=== PATIENT | male | born 1995 | race Caucasian/White ===

== ENCOUNTER 2019-03-15 20:09 | Emergency (ER) | payer OTHER ==
[2019-03-15] MEDS ORDERED: ACETAMINOPHEN TAB 500 MG TAB PO STA (21:47)
[2019-03-15] MEDS: SODIUM CHLORIDE 0.9% 500 ML 500 ML IV SCH ×3 (22:11→23:28)
[2019-03-15 22:34] LABS: Basophils # (A) 0.1 k/uL (0-0.2); Basophils % (A) 1 %; Eosinophils # (A) 0.1 k/uL (0-0.7); Eosinophils % (A) 1 %; HCT 42.7 % (39.0-53.0); HGB 15.1 gm/dL (13.0-17.5); Lymphocytes # (A) 2.2 k/uL (1.0-4.8); Lymphocytes % (A) 21 %; MCH 30.7 pg (25.0-35.0); MCHC 35.4 g/dL (31.0-37.0); MCV 86.6 fL (80.0-100.0); Mean Platelet Volume 8.5; Monocytes # (A) 0.6 k/uL (0-1.0); Monocytes % (A) 6 %; Neutrophils # (A) 7.1 k/uL (1.3-7.7); Neutrophils % (A) 69 %; Platelet Count 258 k/uL (150-450); RBC 4.92 m/uL (4.30-5.90); RDW 13.9 % (11.5-15.5); WBC 10.2 k/uL (3.8-10.6)
[2019-03-15 22:42] LABS: ALT 49 U/L (21-72); AST 39 U/L (17-59); African American GFR (CKD) >90 (>60 ml/min/1.73 sqM); Albumin 4.6 g/dL (3.5-5.0); Alkaline Phosphatase 67 U/L (38-126); Anion Gap 9 mmol/L; Blood Urea Nitrogen 19 mg/dL (9-20); Calcium 9.7 mg/dL (8.4-10.2); Carbon Dioxide 27 mmol/L (22-30); Chloride 107 mmol/L (98-107); Glucose 88 mg/dL (74-99); Sodium 143 mmol/L (137-145); Total Bilirubin 0.8 mg/dL (0.2-1.3); Total Protein 7.7 g/dL (6.3-8.2)
[2019-03-15 23:10] LABS: Appearance,Urine Clear (Clear); Bilirubin,Urine Negative (Negative); Blood,Urine Negative (Negative); Color,Urine Yellow; Glucose,Urine (UA) Negative (Negative); Hyaline Casts,Urine 3 /lpf (0-2); Ketones,Urine 1+ (Negative); Leukocyte Esterase,Urine Negative (Negative); Mucus,Urine Moderate /hpf; Nitrite,Urine Negative (Negative); PH, Urine 5.5 (5.0-8.0); Protein,Urine 1+ (Negative); RBC,Urine 2 /hpf (0-5); Specific Gravity,Urine 1.033 (1.001-1.035); Squamous Epithelial Cell,Urine 1 /hpf (0-4); WBC,Urine 3 /hpf (0-5)
[2019-03-15] MEDS ORDERED: SULFAMETH-TMP DS STARTER PACK 2 TAB BTL PO STA (23:14)
[2019-03-15] MEDS ORDERED: CEPHALEXIN 500MG STARTER PACK 4 CAP BTL PO STA (23:14)
--- NOTE | 2019-03-15 23:17 | XR ---
INDICATION: Fever COMPARISON: None FINDINGS: Frontal and lateral views of the chest are obtained. The lungs are clear. There is no effusion or pneumothorax. Cardiomediastinal select and pulmonary vascularity are normal. Regional skeleton appears intact. IMPRESSION: No acute cardiopulmonary disease.
--- NOTE | 2019-03-15 23:17 | ED ---
Skin/Abscess/FB HPI - General Chief complaint: Skin/Abscess/Foreign Body Stated complaint: Fever Time Seen by Provider: 03/15/19 21:11 Source: patient, family Mode of arrival: ambulatory Limitations: no limitations - History of Present Illness Initial comments: 23-year-old male patient presents to the emergency department today for evaluation of infection to the right side of his face. Patient states for the last 2 days he has been feeling unwell. States that he has had sweats, chills, and is felt feverish. Patient states he has been feeling very fatigued. States that he had a pimple to the right cheek which he popped and drained. He states today he developed redness surrounding the area. Patient denies any dental pain. Patient does report remote history of IV drug abuse. States he currently only uses marijuana. Patient states there is a possibility of HIV would like to be tested. Denies any nausea, vomiting, abdominal pain. Denies any cough, congestion, or sore throat. Denies any other areas of infection. Patient denies any recent rash, shortness breath, chest pain, diarrhea, constipation, back pain, numbness, tingling, dizziness, weakness, hematuria, dysuria, urinary urgency, urinary frequency, headache, visual changes, or any other complaints. - Related Data Previous Rx's Medication Instructions Recorded Cephalexin [Keflex] 500 mg PO Q6HR #40 cap 03/15/19 Sulfamethoxazole/Trimethoprim 1 each PO BID #20 tablet 03/15/19 [Bactrim DS 800-160 mg] Allergies Allergy/AdvReac Type Severity Reaction Status Date / Time No Known Allergies Allergy Verified 03/15/19 21:52 Review of Systems ROS Statement: Those systems with pertinent positive or pertinent negative responses have been documented in the HPI. ROS Other: All systems not noted in ROS Statement are negative. Past Medical History Past Medical History: No Reported History History of Any Multi-Drug Resistant Organisms: None Reported Past Surgical History: No Surgical Hx Reported Past Psychological History: No Psychological Hx Reported Smoking Status: Never smoker Past Alcohol Use History: Occasional Past Drug Use History: Marijuana General Exam Limitations: no limitations General appearance: alert, in no apparent distress, other (Is a well-developed, well-nourished adult male patient in no acute distress. Vital signs upon presentation are temperature 100.7F oral, pulse 101, respirations 20, blood pressure 142/89, pulse ox 98% on room air.) Eye exam: Present: normal appearance, PERRL, EOMI. Absent: scleral icterus, conjunctival injection, periorbital swelling ENT exam: Present: normal exam, normal oropharynx, mucous membranes moist Respiratory exam: Present: normal lung sounds bilaterally. Absent: respiratory distress, wheezes, rales, rhonchi, stridor Cardiovascular Exam: Present: regular rate, normal rhythm, normal heart sounds. Absent: systolic murmur, diastolic murmur, rubs, gallop, clicks Course Vital Signs 03/15/19 03/15/19 03/15/19 20:27 20:42 21:30 Temperature 98.2 F 99.0 F 100.7 F H Pulse Rate 101 H Respiratory 20 Rate Blood Pressure 142/89 O2 Sat by Pulse 98 Oximetry 03/15/19 23:35 Temperature 98.9 F Pulse Rate 96 Respiratory 18 Rate Blood Pressure 131/87 O2 Sat by Pulse 100 Oximetry Medical Decision Making - Medical Decision Making 23-year-old male patient presents to the emergency department today for evaluation of infection to the right side of his face, fever, and sweats. Physical examination reveals a wound to the right cheek with surrounding cell ulitis. No lymphadenopathy. No dental infection. Abdomen is soft and nontender. Lungs are clear to auscultation with good air movement. Labs reviewed and are unremarkable. Patient does report a possibility for HIV infection, we did send HIV testing. Patient was given IV fluids and Tylenol. U dee reevaluation does report improve symptoms. He'll be started on Keflex and Bactrim for cellulitis to the face. HIV testing is pending. He is instructed to follow[facility]up with [facility] for [facility] evaluation. Return parameters discussed in detail. He verbalizes understanding and agrees this plan. - Lab Data Result diagrams: 03/15/19 22:15 03/15/19 22:15 Lab Results 03/15/19 03/15/19 03/15/19 Range/Units 22:15 22:15 22:15 WBC 10.2 (3.8-10.6) k/uL RBC 4.92 (4.30-5.90) m/uL Hgb 15.1 (13.0-17.5) gm/dL Hct 42.7 (39.0-53.0) % MCV 86.6 (80.0-100.0) fL MCH 30.7 (25.0-35.0) pg MCHC 35.4 (31.0-37.0) g/dL RDW 13.9 (11.5-15.5) % Plt Count 258 (150-450) k/uL Neutrophils % 69 % Lymphocytes % 21 % Monocytes % 6 % Eosinophils % 1 % Basophils % 1 % Neutrophils # 7.1 (1.3-7.7) k/uL Lymphocytes # 2.2 (1.0-4.8) k/uL Monocytes # 0.6 (0-1.0) k/uL Eosinophils # 0.1 (0-0.7) k/uL Basophils # 0.1 (0-0.2) k/uL Sodium 143 (137-145) mmol/L Potassium 4.0 (3.5-5.1) mmol/L Chloride 107 (98-107) mmol/L Carbon Dioxide 27 (22-30) mmol/L Anion Gap 9 mmol/L BUN 19 (9-20) mg/dL Creatinine 1.12 (0.66-1.25) mg/dL Est GFR (CKD-EPI)AfAm >90 (>60 ml/min/1.73 sqM) Est GFR (CKD-EPI)NonAf >90 (>60 ml/min/1.73 sqM) Glucose 88 (74-99) mg/dL Plasma Lactic Acid Raji 0.9 (0.7-2.0) mmol/L Calcium 9.7 (8.4-10.2) mg/dL Total Bilirubin 0.8 (0.2-1.3) mg/dL AST 39 (17-59) U/L ALT 49 (21-72) U/L Alkaline Phosphatase 67 (38-126) U/L Total Protein 7.7 (6.3-8.2) g/dL Albumin 4.6 (3.5-5.0) g/dL Urine Color Urine Appearance (Clear) Urine pH (5.0-8.0) Ur Specific [place] (1.001-1.035) Urine Protein (Negative) Urine Glucose (UA) (Negative) Urine Ketones (Negative) Urine Blood (Negative) Urine Nitrite (Negative) Urine Bilirubin (Negative) Urine Urobilinogen (<2.0) mg/dL Ur Leukocyte Esterase (Negative) Urine RBC (0-5) /hpf Urine WBC (0-5) /hpf Ur Squamous Epith Cells (0-4) /hpf Hyaline Casts (0-2) /lpf Urine Mucus (None) /hpf 03/15/19 Range/Units 22:45 WBC (3.8-10.6) k/uL RBC (4.30-5.90) m/uL Hgb (13.0-17.5) gm/dL Hct (39.0-53.0) % MCV (80.0-100.0) fL MCH (25.0-35.0) pg MCHC (31.0-37.0) g/dL RDW (11.5-15.5) % Plt Count (150-450) k/uL Neutrophils % % Lymphocytes % % Monocytes % % Eosinophils % % Basophils % % Neutrophils # (1.3-7.7) k/uL Lymphocytes # (1.0-4.8) k/uL Monocytes # (0-1.0) k/uL Eosinophils # (0-0.7) k/uL Basophils # (0-0.2) k/uL Sodium (137-145) mmol/L Potassium (3.5-5.1) mmol/L Chloride (98-107) mmol/L Carbon Dioxide (22-30) mmol/L Anion Gap mmol/L BUN (9-20) mg/dL Creatinine (0.66-1.25) mg/dL Est GFR (CKD-EPI)AfAm (>60 ml/min/1.73 sqM) Est GFR (CKD-EPI)NonAf (>60 ml/min/1.73 sqM) Glucose (74-99) mg/dL Plasma Lactic Acid Raji (0.7-2.0) mmol/L Calcium (8.4-10.2) mg/dL Total Bilirubin (0.2-1.3) mg/dL AST (17-59) U/L ALT (21-72) U/L Alkaline Phosphatase (38-126) U/L Total Protein (6.3-8.2) g/dL Albumin (3.5-5.0) g/dL Urine Color Yellow Urine Appearance Clear (Clear) Urine pH 5.5 (5.0-8.0) Ur Specific [place] 1.033 (1.001-1.035) Urine Protein 1+ H (Negative) Urine Glucose (UA) Negative (Negative) Urine Ketones 1+ H (Negative) Urine Blood Negative (Negative) Urine Nitrite Negative (Negative) Urine Bilirubin Negative (Negative) Urine Urobilinogen 2.0 (<2.0) mg/dL Ur Leukocyte Esterase Negative (Negative) Urine RBC 2 (0-5) /hpf Urine WBC 3 (0-5) /hpf Ur Squamous Epith Cells 1 (0-4) /hpf Hyaline Casts 3 H (0-2) /lpf Urine Mucus Moderate H (None) /hpf - Radiology Data Radiology results: report reviewed, image reviewed Two-view x-ray of the chest is obtained. Report was reviewed in its entirety. Impression by Dr. Ngo shows no acute cardiopulmonary disease. Disposition Clinical Impression: Facial cellulitis Disposition: HOME SELF-CARE Condition: Good Instructions (If sedation given, give patient instructions): Cellulitis (ED) Additional Instructions: Complete antibiotic prescriptions and full. Follow-up with your primary care physician for recheck in 1-2 days. If he did not have one has been recommended at the bottom of this page. Return to the emergency department immediately for any new, worsening, or concerning symptoms. Prescriptions: Sulfamethoxazole/Trimethoprim [Bactrim DS 800-160 mg] 1 each PO BID #20 tablet Cephalexin [Keflex] 500 mg PO Q6HR #40 cap Is patient prescribed a controlled substance at d/c from ED?: No [facility] [[facility]] - 1-2 days Time of Disposition: 23:17
[2019-03-15 23:36] VITALS: BP 131/87; PULSE 96; RESP 18; TEMP 98.9
[2019-03-17 12:26] LABS: HIV 1 AB Non-Reactive (Non-Reactive); HIV AB P24 Non-Reactive (Non-Reactive); HIV P24 AG Non-Reactive (Non-Reactive)
== END 2019-03-15 23:40 | disposition home or self-care (01) ==
LOC: EC 20:09
DX: L03.211 Cellulitis of face (principal)
CPT/HCPCS: 36415; 71046; 80053; 81001; 83605; 85025; 87040; 87390; 96360; 99283

== ENCOUNTER 2019-03-17 18:12 | Emergency (ER) | payer OTHER ==
[2019-03-17 18:32] VITALS: BP 148/81; PULSE 102; RESP 18; TEMP 98.4
--- NOTE | 2019-03-17 20:04 | ED ---
Skin/Abscess/FB HPI - General Chief complaint: Skin/Abscess/Foreign Body Stated complaint: Rash Time Seen by Provider: 03/17/19 19:00 Source: patient Mode of arrival: ambulatory Limitations: no limitations - History of Present Illness Initial comments: Patient is a 23-year-old male presenting to the emergency Department with complaints of a worsening rash 3 days. Patient was seen in the ED 2 days ago and was started on Bactrim and Keflex for possible cellulitis. Patient admits to being an IV drug user. Patient states he has highly concerned that he has HIV and syphilis. Patient has been picking at his soreness. Patient does have HIV testing performed on his last visit and the results are negative. Patient states his thinks his rash is spreading and he thinks the medication is not working. Patient has only taken it for a day and half. Patient denies fever, chills. Patient has no other complaints at this time. Upon arrival to ER, vi fredy signs are stable. - Related Data Previous Rx's Medication Instructions Recorded Cephalexin [Keflex] 500 mg PO Q6HR #40 cap 03/15/19 Sulfamethoxazole/Trimethoprim 1 each PO BID #20 tablet 03/15/19 [Bactrim DS 800-160 mg] Allergies Allergy/AdvReac Type Severity Reaction Status Date / Time No Known Allergies Allergy Verified 03/17/19 18:32 Review of Systems ROS Statement: Those systems with pertinent positive or pertinent negative responses have been documented in the HPI. ROS Other: All systems not noted in ROS Statement are negative. Past Medical History Past Medical History: No Reported History History of Any Multi-Drug Resistant Organisms: None Reported Past Surgical History: No Surgical Hx Reported Past Psychological History: No Psychological Hx Reported Smoking Status: Never smoker Past Alcohol Use History: Occasional Past Drug Use History: Marijuana General Exam - General Exam Comments Initial Comments: GENERAL: Well-appearing, anxious. HEAD: Atraumatic, normocephalic. EYES: Pupils equal round and reactive to light, extraocular movements intact, sclera anicteric, conjunctiva are normal. ENT: TMs normal, nares patent, oropharynx clear without exudates. Moist mucous membranes. NECK: Normal range of motion, supple without lymphadenopathy or JVD. LUNGS: Breath sounds clear to auscultation bilaterally and equal. No wheezes rales or rhonchi. HEART: Regular rate and rhythm without murmurs, rubs or gallops. ABDOMEN: Soft, nontender, normoactive bowel sounds. No guarding, no rebound. No masses appreciated. : Deferred EXTREMITIES: Normal range of motion, no pitting or edema. No clubbing or cyanosis. NEUROLOGICAL: Cranial nerves II through XII grossly intact. Normal speech, normal gait. PSYCH: Normal mood, appears anxious. SKIN: Warm, Dry, normal turgor. Patient has numerous skin lesions that are open and inflamed. There is no surrounding erythema or signs of cellulitis at this time. Patient admits to picking at wounds. Limitations: no limitations Course Vital Signs 03/17/19 18:29 Temperature 98.4 F Pulse Rate 102 H Respiratory 18 Rate Blood Pressure 148/81 O2 Sat by Pulse 98 Oximetry Medical Decision Making - Medical Decision Making Patient is a 23-year-old male presenting with concerns for increase in rash. Patient was in the ED 2 days ago for possible cellulitis and was started on Bactrim and Keflex. Patient also received HIV testing at that time and he is very anxious at the results are positive. Patient believes he also has syphilis because of the lesions. On exam patient has multiple open skin lesions that he admits to picking at. There is no surrounding erythema or signs cellulitis at this time. Discussed with patient that his HIV testing is negative at this time. Discussed with patient to continue with Keflex and Bactrim as indicated. Patient will follow-up as needed. Patient is agreement with this plan and care. Patient is stable for discharge at this time. Return parameters were discussed with the patient he verbalizes understanding. Case discussed with Dr. Ramirez. Disposition Clinical Impression: Facial cellulitis Disposition: HOME SELF-CARE Condition: Stable Instructions (If sedation given, give patient instructions): Cellulitis (ED) Additional Instructions: Please return to the Emergency Department if symptoms worsen or any other concerns. Continue with Bactrim and Keflex as prescribed. Is patient prescribed a controlled substance at d/c from ED?: No Referrals: None,Stated [Primary Care Provider] - 1-2 days
== END 2019-03-17 20:15 | disposition home or self-care (01) ==
LOC: EC 18:12
DX: L03.211 Cellulitis of face (principal)
CPT/HCPCS: 99282

== ENCOUNTER 2019-03-21 09:58 | Emergency (ER) | payer OTHER ==
[2019-03-21 10:07] VITALS: BP 144/85; PULSE 119; RESP 18; TEMP 98.3
--- NOTE | 2019-03-21 12:27 | ED ---
General Adult HPI - General Chief complaint: Psychiatric Symptoms Stated complaint: Mental health eval Time Seen by Provider: 03/21/19 10:00 Source: patient, police, RN notes reviewed Mode of arrival: ambulatory Limitations: no limitations - History of Present Illness Initial comments: This is a 23-year-old male presents emergency Department complaining that he is agitated shaky and feels as though he is paranoid. Patient states for some reason he doesn't feel is likely contrast his family or friends and he knows this is wrong. Patient doesn't know what is going on and why he is feeling this way. Patient denies any chest pain or palpitations. Patient denies any abdominal pain patient denies nausea or vomiting. Patient denies any recent fever chills or cough. Patient denies any patient denies numbness weakness. Patient denies any lightheadedness or dizziness. Patient denies any injury or trauma. Patient states he is a methamphetamine user states he used last night. - Related Data Home Medications Medication Instructions Recorded Confirmed Sulfamethoxazole/Trimethoprim 1 tab PO BID 03/21/19 03/21/19 [Bactrim DS 800-160 mg] Previous Rx's Medication Instructions Recorded Cephalexin [Keflex] 500 mg PO Q6HR #40 cap 03/15/19 hydrOXYzine PAMOATE [Vistaril] 25 mg PO TID #5 cap 03/21/19 Allergies Allergy/AdvReac Type Severity Reaction Status Date / Time No Known Allergies Allergy Verified 03/21/19 10:22 Review of Systems ROS Statement: Those systems with pertinent positive or pertinent negative responses have been documented in the HPI. ROS Other: All systems not noted in ROS Statement are negative. Past Medical History Past Medical History: No Reported History History of Any Multi-Drug Resistant Organisms: None Reported Past Surgical History: No Surgical Hx Reported Past Psychological History: No Psychological Hx Reported Smoking Status: Never smoker Past Alcohol Use History: Occasional Past Drug Use History: Marijuana General Exam - General Exam Comments Initial Comments: GENERAL: Patient is well-developed and well-nourished. Patient is nontoxic and well- hydrated and is in no acute distress. ENT: Neck is soft and supple. No significant lymphadenopathy is noted. Oropharynx is clear. Moist mucous membranes. Neck has full range of motion without eliciting any pain. EYES: The sclera were anicteric and conjunctiva were pink and moist. Extraocular movements were intact and pupils were equal round and reactive to light. Eyelids were unremarkable. PULMONARY: Unlabored respirations. Good breath sounds bilaterally. No audible rales rhonchi or wheezing was noted. CARDIOVASCULAR: Patient is tachycardic at about 120 beats a minute ABDOMEN: Soft and nontender with normal bowel sounds. No palpable organomegaly was noted. There is no palpable pulsatile mass. SKIN: Skin is clear with no lesions or rashes and otherwise unremarkable. NEUROLOGIC: Patient is alert and oriented x3. Cranial nerves II through XII are grossly intact. Motor and sensory are also intact. Normal speech, volume and content. Symmetrical smile. MUSCULOSKELETAL: Normal extremities with adequate strength and full range of motion. No lower extremity swelling or edema. No calf tenderness. LYMPHATICS: No significant lymphadenopathy is noted PSYCHIATRIC: Patient is mildly anxious Limitations: no limitations Course Vital Signs 03/21/19 10:02 Temperature 98.3 F Pulse Rate 119 H Respiratory 18 Rate Blood Pressure 144/85 O2 Sat by Pulse 100 Oximetry Medical Decision Making - Medical Decision Making EPS evaluated the patient and was determined that the patient was just suffering from anxiety from doing methamphetamines. I gave the patient some Vistaril in the hospital some home with 5 pills to help with the anxiety. Patient on discharge mention that he had some whitish discharge from his penis so I gave the patient Rocephin and Zithromax and also tested his urine for gonorrhea and chlamydia. I did Reaction of his penis and testicles there was an abrasion on the left side of the shaft however there was no signs of infection he was already on Keflex at this time. - Lab Data Lab Results 03/21/19 Range/Units 11:37 Urine Opiates Screen Not Detected (NotDetected) Ur Oxycodone Screen Not Detected (NotDetected) Urine Methadone Screen Not Detected (NotDetected) Ur Propoxyphene Screen Not Detected (NotDetected) Ur Barbiturates Screen Not Detected (NotDetected) U Tricyclic Antidepress Not Detected (NotDetected) Ur Phencyclidine Scrn Not Detected (NotDetected) Ur Amphetamines Screen Detected H (NotDetected) U Methamphetamines Scrn Detected H (NotDetected) U Benzodiazepines Scrn Detected H (NotDetected) Urine Cocaine Screen Detected H (NotDetected) U Marijuana (THC) Screen Detected H (NotDetected) Disposition Clinical Impression: Methamphetamine abuse, STD (male) Disposition: HOME SELF-CARE Condition: Good Prescriptions: hydrOXYzine PAMOATE [Vistaril] 25 mg PO TID #5 cap Is patient prescribed a controlled substance at d/c from ED?: No Referrals: None,Stated [Primary Care Provider] - 1-2 days Time of Disposition: 13:20
[2019-03-21 12:41] LABS: Amphetamine Screen,Urine Detected (NotDetected); Barbiturate Screen,Urine Not Detected (NotDetected); Benzodiazepines Screen,Urine Detected (NotDetected); Cocaine Screen,Urine Detected (NotDetected); Methadone Screen, Urine Not Detected (NotDetected); Opiate Screen,Urine Not Detected (NotDetected); Oxycodone Screen, Urine Not Detected (NotDetected); Phencyclidine Screen,Urine Not Detected (NotDetected); Tricyclic Antidepressant,Urine Not Detected (NotDetected); Urn Cannabinoid Scrn Detected (NotDetected)
[2019-03-21] MEDS ORDERED: hydrOXYzine PAMOATE 25 MG CAP PO STA (13:17)
[2019-03-21] MEDS ORDERED: cefTRIAXone 250 MG VIAL IM STA (13:26)
[2019-03-21] MEDS ORDERED: AZITHROMYCIN 500 MG TAB PO STA (13:26)
[2019-03-23 14:11] LABS: C. trachomatis,PCR Negative (Neg,Equiv); Chlamydia trachomatis Source Urine
[2019-03-23 14:17] LABS: N. gonorrhoeae,PCR Negative (Neg,Equiv); Neisseria Source Urine
== END 2019-03-21 13:45 | disposition home or self-care (01) ==
LOC: EC 09:58
DX: F15.10 Other stimulant abuse, uncomplicated (principal); A64 Unspecified sexually transmitted disease; S30.813A Abrasion of scrotum and testes, initial encounter; F41.9 Anxiety disorder, unspecified; R45.1 Restlessness and agitation; F60.0 Paranoid personality disorder; X58.XXXA Exposure to other specified factors, initial encounter
CPT/HCPCS: 82075; 87491; 87591; 80306; 96372; 99285; J0696